=== PATIENT | female | born 1970 | race Caucasian/White ===

== ENCOUNTER 2018-11-28 13:35 | Emergency (ER) | payer OTHER ==
[2018-11-28] MEDS: SOD CHLORIDE 0.9% 1,000 ML IV (15:44)
[2018-11-28] MEDS: HYDROCODONE/APAP (5/325) TAB PO (15:44)
== END 2018-11-28 17:20 | disposition home or self-care (01) ==
LOC: FTE 13:35
DX: S06.0X1A Concussion with loss of consciousness of 30 minutes or less, initial encounter (principal); S16.1XXA Strain of muscle, fascia and tendon at neck level, initial encounter; S00.03XA Contusion of scalp, initial encounter; I10 Essential (primary) hypertension; W01.198A Fall on same level from slipping, tripping and stumbling with subsequent striking against other object, initial encounter
CPT/HCPCS: 70450; 72125; 99285-25